=== PATIENT | female | born 1985 | race Caucasian/White ===

== ENCOUNTER 2018-01-20 17:50 | Inpatient (IN) | payer MEDICAID ==
[~2018-01-20] VITALS: Ht 152 cm; Wt 72.6 kg
[2018-01-20] MEDS ORDERED: PROMETHAZINE 25 MG/ML VIAL IVP PRN (20:15)
[2018-01-20] MEDS ORDERED: NALBUPHINE 10 MG/ML AMP IVP PRN (20:15)
[2018-01-20] MEDS ORDERED: MISOPROSTOL 25 MCG TAB VG PRN (20:15)
[2018-01-20] MEDS ORDERED: METHYLERGONOVINE 0.2 MG/ML AMP IM PRN (20:15)
[2018-01-20] MEDS ORDERED: OXYTOCIN 20 UNITS in LACTATED RINGERS 1,000 ML IV SCH (20:15)
[2018-01-20] MEDS ORDERED: LACTATED RINGERS 1,000 ML IV SCH (21:00)
[2018-01-20] MEDS ORDERED: AMPICILLIN 2,000 MG in NACL 0.9% MINI-BAG PLUS 100 ML IV SCH (21:00)
[2018-01-20] MEDS ORDERED: OXYTOCIN 10 UNITS/ML VIAL IM SCH (21:00)
[2018-01-20 21:21] LABS: APPEARANCE,URINE CLEAR (CLEAR); BILIRUBIN,URINE NEGATIVE (NEGATIVE); BLOOD, URINE 1+ (NEGATIVE); COLOR,URINE YELLOW (YELLOW); LEUKOCYTE ESTERASE ,URINE NEGATIVE (NEGATIVE); NITRITE, URINE NEGATIVE (NEGATIVE); UGLUCOSE NEGATIVE (NEGATIVE)
[2018-01-20] MEDS ORDERED: AMPICILLIN 2,000 MG VIAL ONE (21:22)
[2018-01-20 21:23] LABS: BASOPHILS % (AUTO) 0.3 % (0.0-2.0); EOSINOPHILS # (AUTO) 0.1 K/uL (0-0.4); EOSINOPHILS % (AUTO) 1.7 % (0.0-4.0); HEMATOCRIT 38.6 % (36-48); HEMOGLOBIN 12.8 g/dL (12.0-16.0); LYMPHOCYTES # (AUTO) 1.4 K/uL (2.5-16.5); LYMPHOCYTES % (AUTO) 20.8 % (20.5-51.1); MEAN CORPUSCULAR HEMOGLOBIN 29 pg (27-31); MEAN CORPUSCULAR HGB CONC 33 g/dL (33-37); MEAN CORPUSCULAR VOLUME 88.5 fL (80-94); MONOCYTES # (AUTO) 0.5 K/uL (0.8-1.0); MONOCYTES % (AUTO) 7.9 % (1.7-9.3); NEUTROPHILS # (AUTO) 4.7 K/uL (1.8-7.7); NEUTROPHILS % (AUTO) 69.3 % (42.2-75.2); PLATELET COUNT (AUTO) 227 K/uL (140-450); RED BLOOD CELL COUNT(AUTO) 4.36 MIL/uL (4.20-5.40); RED CELL DISTRIBUTION WIDTH 15.1 % (11.6-13.7); WHITE BLOOD COUNT (AUTO) 6.8 K/uL (4.8-10.8)
[2018-01-20 21:24] LABS: RBC,URINE 3-10 (FEW) /HPF (0-5); WBC,URINE 0-5 (RARE) /HPF (0-5)
[2018-01-20] MEDS ORDERED: PREN-546 PO (23:39)
[2018-01-20] MEDS ORDERED: FERR325E14 PO (23:39)
[2018-01-20 23:40] VITALS: BP 111/60
[2018-01-21] MEDS ORDERED: AMPICILLIN 1,000 MG in NACL 0.9% MINI-BAG PLUS 50 ML IV SCH ×2
[2018-01-21] MEDS ORDERED: NALBUPHINE 10 MG/ML AMP ONE (00:55)
[2018-01-21] MEDS ORDERED: PROMETHAZINE 25 MG/ML VIAL ONE (00:55)
[2018-01-21] MEDS ORDERED: OXYTOCIN 20 UNITS/LR PREMIX 1,000 ML IV ONE (02:21)
[2018-01-21] MEDS ORDERED: OXYTOCIN 10 UNITS/ML VIAL ONE (04:09)
[2018-01-21] MEDS ORDERED: TEMAZEPAM 15 MG CAP PO PRN (04:45)
[2018-01-21] MEDS ORDERED: IBUPROFEN 800 MG TAB PO PRN (04:45)
[2018-01-21] MEDS ORDERED: OXYTOCIN 10 UNITS/ML VIAL IM PRN (04:45)
[2018-01-21] MEDS ORDERED: oxyCODONE/APAP 5/325 MG 1 TAB TAB PO PRN (04:45)
[2018-01-21] MEDS ORDERED: METHYLERGONOVINE 0.2 MG/ML AMP IM PRN (04:45)
[2018-01-21] MEDS ORDERED: oxyCODONE/APAP 5/325 MG 1 TAB TAB ONE (04:52)
[2018-01-21] MEDS ORDERED: MEASLES, MUMPS, AND RUBELLA 1 VIAL SQVAC SCH (05:00)
[2018-01-21] MEDS: HYDROcodone/APAP 5/325 MG 1 TAB TAB PO PRN ×2 (11:17→19:56)
--- NOTE | 2018-01-21 11:27 | NUR ---
PATIENT HAS BEEN SCREENED AND CATEGORIZED LOW NUTRITION RISK. PATIENT WILL BE SEEN WITHIN 7 DAYS OF ADMISSION. 01/27/[address]
[2018-01-21] MEDS ORDERED: DOCUSATE SOD/SENNA 50/8.6 MG 1 TAB PO SCH (21:00)
[2018-01-22] MEDS: HYDROcodone/APAP 5/325 MG 1 TAB TAB PO PRN (03:38)
[2018-01-22 06:50] LABS: HEMATOCRIT 35.5 % (36-48); HEMOGLOBIN 11.7 g/dL (12.0-16.0)
[2018-01-22] MEDS ORDERED: IBUP-1842 PO (13:03)
[2018-01-22] MEDS ORDERED: DOCUSATE SOD/SENNA 50/8.6 MG 1 TAB PO SCH (21:00)
== END 2018-01-22 14:55 | disposition home or self-care (01) | DRG 560 ==
LOC: OBSVTOIN 17:50 → MLD 17:50 → MFCC 01-21 08:46
PROVIDERS: ADMIT Obstetrics & Gynecology; ATTEND Obstetrics & Gynecology
PROC: 10E0XZZ Delivery of Products of Conception, External Approach (ICD-10-PCS; principal; 2018-01-21)
PROC: 3E0234Z Introduction of Serum, Toxoid and Vaccine into Muscle, Percutaneous Approach (ICD-10-PCS; 2018-01-22)
DX: O69.81X0 Labor and delivery complicated by cord around neck, without compression, not applicable or unspecified (principal); Z23 Encounter for immunization; Z37.0 Single live birth; Z3A.38 38 weeks gestation of pregnancy
CPT/HCPCS: 36415; 59409; 76819; 81001; 85018; 85025; 86592; 86886; 86900; 86901; 90715; J0290; J2300; J2550; J2590; J7120; Q0092